=== PATIENT | female | born 1990 | race Caucasian/White ===

== ENCOUNTER 2021-10-27 10:59 | Emergency (ER) | payer OTHER, SELFPAY ==
[2021-10-27 11:10] VITALS: BP 121/78; PULSE 78; RESP 18; TEMP 36.7; O2SAT 99; BMI 21.1
--- NOTE | 2021-10-27 11:47 | HMH.EDUTC ---
[facility] [place] Impression: Impetigo Disposition: Home, Self-Care Condition on Discharge: Good Instructions: DI for Impetigo, Impetigo Additional Instructions: Use cream around the nailbed area and on lesion on hand Follow up with Dermatology as advised Return if needed Straight to ER if any life threatening symptoms Prescriptions: cephALEXin [cephALEXin 500mg capsule*] 500 mg PO Q8H 7 Days #21 cap Transmission Status: Pending to [facility] [place] #[id number] Mupirocin Calcium [Mupirocin 2% Cream 15gm] 1 applicatio TP BID #15 gm Transmission Status: Pending to [facility] [place] #[id number] Referrals: Provider,Nasreen, [Primary Care Provider] - As needed Lam Vizcaino MD [Referring] - Time of Disposition: 12:02 Medical Decision Making - [place] Inquiry Pt receiving controlled substance: No [place] was queried for this patient: No Vital Signs: 10/27/21 11:10 Temperature 98.0 F Temperature Source Oral Pulse Rate [Right Brachial] 78 Respiratory Rate 18 Blood Pressure [Right Arm] 121/78 Blood Pressure Mean [Right Arm] 92 Blood Pressure Source [Right Arm] Automatic Cuff Blood Pressure Position [Right Arm] Sitting 02 Sat by Pulse Oximetry 99 Oxygen Delivery Method Room Air [facility] [place] - General Stated complaint: contact dermititis on hands Time Seen by Provider: 10/27/21 11:47 Mode of Arrival: Ambulatory Source of Information: Patient Limitations: No Limitations Description of Symptoms (Recalled from Triage Doc. by RN): PATIENT STATES SHE THINKS SHE HAS CONTACT DERMATITIS TO HAND AFTER GETTING HER NAILS DONE A MONTH AGO HEENT Symptoms (Recalled from RN notes): No Resp Symptoms (Recalled from RN notes): No Skin Symptoms (Recalled from RN notes): Yes MS Symptoms (Recalled from RN notes): No Functional Status (Recalled from RN notes): WNL - History of Present Illness Provider Complaint: Patient state that she had her nails done recently and they cleared her cuticles States that since then she noticed she was having some redness and swelling and around some of her cuticles and it is starting to spread to other fingers State that she has tried prednisone and bacitracin that she had left over but it hasnt helped much so she came in to see if there is something else she can try - Related Data Previous Rx's Medication Instructions Recorded Mupirocin Calcium [Mupirocin 2% 1 applicatio TP BID #15 gm 10/27/21 Cream 15gm] cephALEXin [cephALEXin 500mg 500 mg PO Q8H 7 Days #21 cap 10/27/21 capsule*] Allergies Allergy/AdvReac Type Severity Reaction Status Date / Time Sulfa (Sulfonamide Allergy Verified 10/27/21 11:30 Antibiotics) - Worker's Comp Is this a Worker's Comp case?: No H History - Hepatitis A Screen Drug use history?: No High risk sexual behaviors?: No History of sexually transmitted infection?: No Currently employed?: No Childcare worker?: No Do you have indoor plumbing?: Yes Do you have electricity?: Yes Attestation statement:: This patient has been screened for Hepatitis A risk factors. I have reviewed the patient's past medical history: Yes ROS Obtained: Yes All systems reviewed & no additional complaints, Yes Systems reviewed as appropriate & no additional complaints - Constitutional Constitutional: Reports system reviewed and no additional complaints, except as docu, Denies body ache, Denies chills, Denies fever(s) - ENT Ears, Nose, Mouth, and Throat: Reports system reviewed and no additional complaints, except as docu - Cardiovascular Cardiovascular: Reports system reviewed and no additional complaints, except as docu - Respiratory Respiratory: Reports system reviewed and no additional complaints, except as docu - Gastrointestinal Gastrointestingal: Reports: system reviewed and no additional complaints, except as docu - Musculoskeletal Musculoskeletal: Reports system reviewed and no additional complaints, except as docu - Integumentary/
[2021-10-27 12:00] VITALS: BP 121/78; PULSE 78; RESP 18; TEMP 36.7; O2SAT 99
== END 2021-10-27 12:07 | disposition home or self-care (01) ==
PROVIDERS: Emergency Provider Nurse Practitioner
DX: L01.00 Impetigo, unspecified (principal)
CPT/HCPCS: 99202; G0463

== ENCOUNTER 2023-02-19 13:28 | Emergency (ER) | payer OTHER, SELFPAY ==
[2023-02-19] VITALS (7 sets, daily range): BP systolic 105–153; BP diastolic 57–86; PULSE 74–103; RESP 16–18; TEMP 36.6–36.7; O2SAT 97–100; BMI 22.6
--- NOTE | 2023-02-19 13:32 | PC.NURSE ---
Spouse at BS; ER MD at BS for pt roly
--- NOTE | 2023-02-19 13:35 | US_ITS ---
PROCEDURE INFORMATION: Exam: US , Transvaginal Exam date and time: 02/19/2023 1:55 PM Age: 32 years old Clinical indication: Lmp or gestational age (in weeks): 7+2; Other: Bleeding; ; Additional info: Vaginal bleeding TECHNIQUE: Imaging protocol: Real-time transvaginal obstetrical ultrasound of the maternal pelvis with image documentation. Transvaginal imaging was used for better evaluation of the fetus, adnexa, and/or cervix. Total images: 425 COMPARISON: No relevant prior studies available. FINDINGS: Gestation: Dichorionic diamniotic twins are present with heart tones noted. heart rate: Fetus A heart rate recorded to be 149 bpm. Fetus B heart rate recorded to be 143 bpm. Placenta: Questionable subchorionic hematoma present. Short-term follow-up is recommended. BIOMETRY: Gestational age (AUA): Average gestational age Fetus A is 7 weeks 1 day. Average gestational age Fetus B is 7 weeks 3 days. Estimated due date (AUA): Estimated date of delivery of 10/05/2023. MATERNAL: Right ovary/adnexa: Right ovary was not well visualized due to overlying bowel gas. Left ovary/adnexa: Corpus luteal cyst is noted on the left ovary. IMPRESSION: 1. Dichorionic diamniotic twins are present with heart tones noted. 2. Questionable subchorionic hematoma present. Short-term follow-up is recommended. 3. Average gestational age Fetus A is 7 weeks 1 day. 4. Fetus A heart rate recorded to be 149 bpm. 5. Fetus B heart rate recorded to be 143 bpm. 6. Average gestational age Fetus B is 7 weeks 3 days.
--- NOTE | 2023-02-19 13:36 | HMH.EDGENADL ---
Discharge Plan Disposition Patient Disposition: Home, Self-Care Condition: Good Prescriptions Prescriptions: New cephalexin 500 mg capsule 500 mg PO Q8H 7 Days Qty: 21 0RF fluconazole [Diflucan] 150 mg tablet 150 mg PO DAILY Qty: 1 0RF Rx Instructions: administer on day 1 of therapy No Action ascorbic acid (vitamin C) [Vitamin C] 500 mg Tablet 500 mg PO DAILY Vitamin D3 100 mcg (4,000 unit) Capsule 1,000 unit PO DAILY Vitamin 27 mg iron- 800 mcg Tablet 1 tab PO DAILY Referrals Follow up/Referrals: Provider,Referral, [Primary Care Provider] - See instructions Clinical Impressions Clinical Impression: Vaginal bleeding affecting early Instructions Patient Instructions: DI for Vaginal Bleeding Discharge ED Provider: Gerardo Castañeda General Adult HPI General Chief complaint: Vaginal Bleeding Stated complaint: 8 Weeks , bleeding Time Seen by Provider: 02/19/23 13:30 History of Present Illness HPI narrative: This is a very pleasant 32-year-old lady with no significant past medical history who is approximately 8 weeks with a twin gestation who presents to the emergency department with a chief complaint of vaginal bleeding. About an hour ago patient had a sudden gush of blood she states would be normal for her menstrual cycle. Since then she has spotting. Denies any pain. Has no chest pain, shortness of breath, syncope, presyncope. Has had no problems with the to date. Related Data Home Medications Medication Instructions Recorded Confirmed ascorbic acid (vitamin C) 500 mg 500 mg PO DAILY Supplement 02/19/23 02/19/23 tablet (Vitamin C) cholecalciferol (vitamin D3) 100 1,000 unit PO DAILY Supplement 02/19/23 02/19/23 mcg (4,000 unit) capsule vits no.130-ferrous fum 1 tab PO DAILY Supplement 02/19/23 02/19/23 27 mg iron-folic acid 800 mcg tablet ( Vitamin) Previous Rx's Medication Instructions Recorded cephalexin 500 mg capsule 500 mg PO Q8H 7 days #21 caps 02/19/23 fluconazole 150 mg tablet 150 mg PO DAILY 1 dose #1 tab 02/19/23 (Diflucan) Allergies Allergy/AdvReac Type Severity Reaction Status Date / Time Sulfa (Sulfonamide Allergy Verified 10/27/21 11:30 Antibiotics) [facility] Disclaimer: The information contained in this section may have been updated after the patient was seen, as this information can be updated by other users. Social History Smoking Status: Never smoker alcohol intake: never current occupational status: employed Travel in the last 8 weeks: None ROS Obtained: Yes All systems reviewed & no additional complaints except as documented Physical Exam General General appearance: alert Head Head exam: atraumatic Eye Eye exam: Present normal appearance ENT ENT exam: Present normal exam Neck Neck exam: Present normal inspection Chest Chest inspection: Present normal inspection Respiratory Respiratory exam: Present normal lung sounds bilaterally Cardiovascular Cardiovascular exam: Present regular rate and normal rhythm Abdominal Exam Abdominal exam: Present soft Extremities Exam Extremities exam: Present normal inspection Neurological Exam Neurological exam: Present alert and oriented X3 Medical Decision Making [place] Inquiry Pt receiving controlled substance: No Vital Signs: 02/19/23 13:35 02/19/23 13:36 02/19/23 13:45 Temperature 98.1 F Temperature Source Oral Pulse Rate 100 H 92 H Pulse Rate [Right Radial] 103 H Respiratory Rate 18 Blood Pressure Blood Pressure [Right Arm] 153/86 H Blood Pressure Mean Blood Pressure Mean [Right Arm] 108 Blood Pressure Source Blood Pressure Source [Right Arm] Automatic Cuff Blood Pressure Position Blood Pressure Position [Right Arm] Sitting 02 Sat by Pulse Oximetry 100 100 100 Oxygen Delivery Method Room Air 02/19/23 14:21 02/19/23 14:30 05
[2023-02-19 13:39] LABS: Microscopic, Urine URINE MICROSCOPIC (MICROSCOPIC)
--- NOTE | 2023-02-19 13:53 | PC.NURSE ---
provided pt with warm blanket.
--- NOTE | 2023-02-19 13:54 | PC.NURSE ---
pt transported to ultrasound via wheelchair.
[2023-02-19 13:58] LABS: Chloride 99 mmol/L (98-107); Potassium 3.6 mmoL/L (3.5-5.1); Sodium 138 mmol/L (136-145)
[2023-02-19 14:01] LABS: Anion Gap 18.6 mEq/L (5-15); Blood Urea Nitrogen 9 mg/dl (7-17); Calcium 9.2 mg/dl (8.4-10.2); Carbon Dioxide 24 mmol/L (22.0-30.0); Creatinine Clearance Estimated 132 mL/min (50-200); Estimated Glomerular Filt Rate 114 ml/min (>60); GFR (African American) 138 ML/MIN (>60); Glucose 102 mg/dl (74-100)
[2023-02-19 14:13] LABS: Basophils % 0.4 % (0.1-2.0); Eosinophils # 0.1 K/mm3 (0.0-0.4); Eosinophils % 0.8 % (0.1-12.0); Hematocrit 41.9 % (37.0-47.0); Hemoglobin 14.4 g/dL (12.2-16.2); Lymphocytes # 1.8 K/mm3 (0.7-4.5); Lymphocytes % 20.7 % (10-50); Mean Corpuscular HGB Conc 34.5 g/dL (31.8-35.4); Mean Corpuscular Hemoglobin 30.2 pg (27.0-31.2); Mean Corpuscular Volume 87.8 fl (81-99); Mean Platelet Volume 7.6 fl (7.4-10.4); Monocytes # 0.5 K/mm3 (0.1-1.0); Monocytes % 6.4 % (1.7-9.3); Neutrophils # 6.1 K/mm3 (1.8-7.8); Neutrophils % 71.7 % (37.0-80.0); Platelet Count 268 K/mm3 (142-424); Red Blood Count 4.78 M/mm3 (4.20-5.40); White Blood Count 8.4 K/mm3 (4.8-10.8)
--- NOTE | 2023-02-19 14:18 | PC.NURSE ---
pt returned from ultrasound per wheelchair.
--- NOTE | 2023-02-19 14:21 | PC.NURSE ---
hooked pt back up to blood pressure cuff and cycling. updated on care. call light within reach. bed in lowest position. at bedside. no questions or concerns at this time.
[2023-02-19 14:22] LABS: Appearance,Urine CLEAR (Clear); Bilirubin,Urine Negative (Negative); Blood, Urine 3+ (Negative); Color,Urine YELLOW (Yellow); Glucose,Urine (UA) Negative (Negative); Ketones,Urine Negative (Negative); Leukocyte Esterase,Urine TRACE (Negative); Nitrate,Urine Negative (Negative); Protein,Urine Negative (Negative); Urobilinogen,Urine 0.2 EU/dl (0.2)
[2023-02-19 14:42] LABS: HCG,Quantitative 116600 mIU/ml (0-5.42)
[2023-02-19 14:49] LABS: Bacteria,Urine Trace /lpf; WBC,Urine Occasional #/hpf (0-3)
== END 2023-02-19 15:22 | disposition home or self-care (01) ==
PROVIDERS: Emergency Provider Emergency Medicine
DX: O41.8X10 Other specified disorders of amniotic fluid and membranes, first trimester, not applicable or unspecified (principal); O30.009 Twin pregnancy, unspecified number of placenta and unspecified number of amniotic sacs, unspecified trimester; Z3A.08 8 weeks gestation of pregnancy
CPT/HCPCS: 76817; 80048; 81001; 84702; 85025; 86900; 86901; 99284; 99285